=== PATIENT | female | born 1965 | race Caucasian/White ===

== ENCOUNTER 2018-06-08 10:45 | Inpatient (IN) | payer OTHER ==
[~2018-06-08] VITALS: Ht 172.7 cm; Wt 113.4 kg
[~2018-06-08 10:45] MED LIST: CATAFLAM50 MG; LODINE500 MG PO; PREMPRO 0.3 MG/1 TAB PO; PROGESTERONA
[2018-06-08] MEDS ORDERED: ATORVASTATIN CA40 MG PO (13:03)
[2018-06-08] MEDS ORDERED: ZESTRIL2.5 MG PO (13:03)
[2018-06-08] MEDS ORDERED: TRAMADOL HCL50 MG PO (13:03)
[2018-06-15] MEDS ORDERED: PROGESTERONE100 MG (12:05)
[2018-06-17] MEDS ORDERED: PERCOCET 5-3251 EACH PO (17:58)
[2018-06-17] MEDS ORDERED: DUI500 PO (17:58)
[2018-06-17] MEDS ORDERED: ELIQUIS2.5 MG PO (17:58)
== END 2018-06-17 22:11 | disposition home or self-care (01) | DRG 470 ==
LOC: O/R 06-15 05:55 → SURH 06-15 05:55
PROVIDERS: Orthopaedic Surgery
PROC: 0MNN0ZZ Release Right Knee Bursa and Ligament, Open Approach (ICD-10-PCS; 2018-06-15)
PROC: 0SRC0J9 Replacement of Right Knee Joint with Synthetic Substitute, Cemented, Open Approach (ICD-10-PCS; principal; 2018-06-15 16:45)
DX: M17.11 Unilateral primary osteoarthritis, right knee (principal); D62 Acute posthemorrhagic anemia; I10 Essential (primary) hypertension; E66.8 Other obesity; E78.00 Pure hypercholesterolemia, unspecified; M81.0 Age-related osteoporosis without current pathological fracture

== ENCOUNTER 2022-04-17 09:51 | Outpatient (CLI) | payer OTHER ==
[~2022-04-17 09:51] MED LIST changes: +ATORVASTATIN CA40 MG PO; +DUI500 PO; +ELIQUIS2.5 MG PO; +PERCOCET 5-3251 EACH PO; +PROGESTERONE100 MG; +TRAMADOL HCL50 MG PO; +ZESTRIL2.5 MG PO
== END 2022-04-17 09:53 | disposition home or self-care (01) ==
LOC: SONOGRAMA 09:51
PROVIDERS: ATTEND Obstetrics & Gynecology
DX: N84.0 Polyp of corpus uteri (principal); N85.00 Endometrial hyperplasia, unspecified

== ENCOUNTER 2022-07-16 10:17 | Emergency (ER) | payer OTHER ==
[~2022-07-16] VITALS: Ht 172.7 cm; Wt 117.9 kg
[2022-07-16] MEDS ORDERED: ZESTRIL10 M1 PO (10:57)
[2022-07-16] MEDS ORDERED: KETO10TA2 PO (14:59)
[2022-07-16] MEDS ORDERED: NORFLEX100MG PO (14:59)
== END 2022-07-16 15:07 | disposition home or self-care (01) ==
LOC: ER 10:17
DX: M54.2 Cervicalgia (principal); M54.50 Low back pain, unspecified; E78.00 Pure hypercholesterolemia, unspecified; I10 Essential (primary) hypertension